=== PATIENT | female | born 1995 | race Hispanic/Latino ===

== ENCOUNTER 2018-11-29 19:19 | Emergency (ER) | payer OTHER ==
[~2018-11-29] VITALS: Ht 149.9 cm; Wt 60.7 kg
[2018-11-29] MEDS ORDERED: IBUPROFEN 600 MG TAB PO ONE (21:30)
[2018-11-29] MEDS ORDERED: IBUP-1022 PO (21:50)
[2018-11-29] MEDS ORDERED: mis (21:53)
[2018-11-29 22:07] VITALS: BP 120/78
--- NOTE | 2018-11-30 09:11 | REP ---
SACRUM AND COCCYX: Three AP and lateral views of the sacrum and coccyx are performed. I see no evidence of acute fracture, dislocation or intrinsic bone disease. IMPRESSION: No radiographic evidence of fracture or dislocation. Electronically Signed by Gregory Nesbitt MD 12/01/2018 08:03 A
== END 2018-11-29 22:08 | disposition home or self-care (01) ==
LOC: M ED 19:19
DX: S30.0XXA Contusion of lower back and pelvis, initial encounter (principal); W10.8XXA Fall (on) (from) other stairs and steps, initial encounter; Y92.018 Other place in single-family (private) house as the place of occurrence of the external cause